=== PATIENT | male | born 2000 | race Caucasian/White ===

== ENCOUNTER 2018-10-11 14:26 | Emergency (ER) | payer SELFPAY ==
[2018-10-11] MEDS ORDERED: Ondansetron 4 MG/2 ML SDV IVPUSH ONE (14:54)
[2018-10-11] MEDS ORDERED: Famotidine 20 MG/2 ML SDV IVPUSH ONE (14:54)
[2018-10-11] MEDS ORDERED: Sodium Chloride 0.9% 10 ML Syringe FLUSH PRN (14:54)
[2018-10-11] MEDS ORDERED: Sodium Chloride 0.9% 1,000 ML IV SCH (15:00)
--- NOTE | 2018-10-11 15:03 | EDM.PDOC ---
ED HPI GENERAL MEDICAL PROBLEM - General Chief Complaint: Gastrointestinal Problem Stated Complaint: VOMITING Time Seen by Provider: 10/11/18 14:40 Source of Information: Reports: Patient, RN Notes Reviewed - History of Present Illness INITIAL COMMENTS - FREE TEXT/NARRATIVE: 18-year-old male comes in with nausea vomiting and also hematemesis. He states he felt fine yesterday was out drinking with friends last evening. Did drink a lot of alcohol, type of [employer] [place] rum and also beer. This morning awakening about 5 hours ago he immediately started feeling very nauseated and then repetitive vomiting. He did try drink some water while ago which made him vomit some more and then there was some blood. He does have some upper midabdominal pain. No diarrhea, no fever or chills. No history of ulcer or other known GI problems. 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 [No Known Home Meds] 10/11/18 [History] Past Medical History - Past Surgical History HEENT Surgical History: Reports: Myringotomy w Tube(s) Social & Family History - Tobacco Use Smoking Status *Q: Never Smoker - Caffeine Use Caffeine Use: Reports: Tea - Recreational Drug Use Recreational Drug Use: Yes Recreational Drug Type: Reports: Marijuana/Hashish Other Recreational Drug Type: last used yesterday ED ROS GENERAL - Review of Systems Review Of Systems: See Below Constitutional: Denies: Fever, Chills, Diaphoresis HEENT: Denies: Throat Pain Respiratory: Denies: Shortness of Breath Cardiovascular: Denies: Chest Pain GI/Abdominal: Reports: Abdominal Pain, Nausea, Vomiting. Denies: Diarrhea Musculoskeletal: Reports: No Symptoms Skin: Reports: No Symptoms Neurological: Reports: No Symptoms ED EXAM, GI/ABD - Physical Exam Exam: See Below General Appearance: Alert, No Apparent Distress Eyes: Bilateral: Normal Appearance Throat/Mouth: Other Head: No: Atraumatic, Facial Swelling Neck: Supple Respiratory/Chest: No Respiratory Distress, Lungs Clear, Normal Breath Sounds Cardiovascular: Regular Rate, Rhythm GI/Abdominal Exam: Soft, Tender (Mild tenderness upper mid abdomen). No: Guarding, Rebound Extremities: Normal Inspection, Normal Range of Motion Neurological: Alert, Oriented, No Motor/Sensory Deficits Skin Exam: Warm, Dry, Normal Color Course - Vital Signs Last Recorded V/S: Last Vital Signs Temp 97.8 F 10/11/18 14:41 Pulse 76 10/11/18 14:41 Resp 20 10/11/18 14:41 BP 143/81 H 10/11/18 14:41 Pulse Ox 100 10/11/18 14:41 - Orders/Labs/Meds Orders: Active Orders 24 hr Category Date Time Status Peripheral IV Care [RC] . DIRECTED Care 10/11/18 14:55 Active Sodium Chloride 0.9% [Normal Saline] 1,000 ml Med 10/11/18 15:00 Active IV ONETIME Sodium Chloride 0.9% [Saline Flush] Med 10/11/18 14:54 Active 10 ml FLUSH ASDIRECTED PRN Peripheral IV Insertion Adult [OM.PC] Stat Oth 10/11/18 14:54 Ordered Medication Orders Sodium Chloride (Normal Saline) 1,000 mls @ 999 mls/hr IV ONETIME JAMAAL Last Admin: 10/11/18 15:17 Dose: 999 mls/hr Sodium Chloride (Saline Flush) 10 ml FLUSH ASDIRECTED PRN PRN Reason: Keep Vein Open Last Admin: 10/11/18 15:00 Dose: 10 ml Meds: Medications Generic Name Dose Route Start Last Admin Trade Name Freq PRN Reason Stop Dose Admin Sodium Chloride 1,000 mls @ 999 mls/hr 10/11/18 15:00 10/11/18 15:17 Normal Saline IV 999 mls/hr ONETIME JAMAAL Administration Sodium Chloride 10 ml 10/11/18 14:54 10/11/18 15:00 Saline Flush FLUSH 10 ml ASDIRECTED PRN Administration Keep Vein Open Discontinued Medications Generic Name Dose Route Start Last Admin Trade Name Freq PRN Reason Stop Dose Admin Famotidine 20 mg 10/11/18 14:54 10/11/18 15:15 Pepcid IVPUSH 10/11/18 14:55 20 mg ONETIME ONE Administration Ondansetron HCl 4 mg 10/11/18 14:54 10/11/18 15:12 Zofran IVPUSH 10/11/18 14:55 4 mg ONETIME ONE Administration Departure - Departure Time of Disposition: 15:31 Disposition: Home, Self-Care 01 Condition: Fair Clinical Impression: Vomiting Qualifiers: Vomiting type: unspecified Vomiting Intractability: non-intractable Nausea presence: with nausea Qualified Code(s): R11.2 - Nausea with vomiting, unspecified Hematemesis Qualifiers: Nausea presence: with nausea Qualified Code(s): K92.0 - Hematemesis - Discharge Information Referrals: PCP,None [Primary Care Provider] - Forms: ED Department Discharge Additional Instructions: Clear liquids only until this evening, then very careful bland diet as tolerated , avoid further alcohol today. Follow-up clinic if symptoms not resolving as expected. - My Orders Last 24 Hours: My Active Orders 10/11/18 14:54 Sodium Chloride 0.9% [Saline Flush] 10 ml FLUSH ASDIRECTED PRN Peripheral IV Insertion Adult [OM.PC] Stat 10/11/18 14:55 Peripheral IV Care [RC] . DIRECTED 10/11/18 15:00 Sodium Chloride 0.9% [Normal Saline] 1,000 ml IV ONETIME - Assessment/Plan Last 24 Hours: My Active Orders 10/11/18 14:54 Sodium Chloride 0.9% [Saline Flush] 10 ml FLUSH ASDIRECTED PRN Peripheral IV Insertion Adult [OM.PC] Stat 10/11/18 14:55 Peripheral IV Care [RC] . DIRECTED 10/11/18 15:00 Sodium Chloride 0.9% [Normal Saline] 1,000 ml IV ONETIME
== END 2018-10-11 16:25 | disposition home or self-care (01) ==
LOC: JD.ED 14:26
DX: K92.0 Hematemesis (principal)
CPT/HCPCS: 96361; 96374; 96375; 99283; J2405; J3490; J7040; 99284

== ENCOUNTER 2018-11-05 23:29 | Emergency (ER) | payer SELFPAY ==
[2018-11-05] MEDS ORDERED: Morphine 4 MG/ML Syringe IM ONE (23:45)
--- NOTE | 2018-11-05 23:49 | EDM.PDOC ---
ED HPI GENERAL MEDICAL PROBLEM - General Chief Complaint: Upper Extremity Injury/Pain Stated Complaint: WRIST INJURY Time Seen by Provider: 11/05/18 23:38 - History of Present Illness INITIAL COMMENTS - FREE TEXT/NARRATIVE: 18-year-old male presents emergency room with a right wrist and forearm injury Patient was riding his longboard and fell forward he is not sure how is he landed. He also bumped his head. The patient did not have any loss of consciousness no nausea no vomiting no unusual neurological symptoms. This occurred nearly 6 hours ago. Denies any head pain or discomfort at this time. The pain is not getting better in his arm and hand so he came in for evaluation past medical history is unremarkable he denies any allergies Right Wrist Pain Score (Numeric/FACES): 9 - Related Data Allergies Allergy/AdvReac Type Severity Reaction Status Date / Time No Known Allergies Allergy Verified 10/11/18 14:37 Home Meds: Home Meds . [No Known Home Meds] 10/11/18 [History] Past Medical History - Past Surgical History HEENT Surgical History: Reports: Myringotomy w Tube(s) Social & Family History - Caffeine Use Caffeine Use: Reports: Tea Review of Systems - Review of Systems Review Of Systems: See Below Constitutional: Reports: No Symptoms. Denies: Chills, Fever Eyes: Reports: No Symptoms Ears: Reports: No Symptoms Nose: Reports: No Symptoms Mouth/Throat: Reports: No Symptoms Respiratory: Reports: No Symptoms Cardiovascular: Reports: No Symptoms GI/Abdominal: Reports: No Symptoms Genitourinary: Reports: No Symptoms Skin: Reports: No Symptoms Neurological: Reports: No Symptoms ED EXAM, GENERAL - Physical Exam Exam: See Below Exam Limited By: No Limitations General Appearance: Alert, Mild Distress (He is having some pain) Eye Exam: Bilateral Eye: Normal Inspection Head: Atraumatic, Normocephalic Neck: Normal Inspection, Supple, Non-Tender, Full Range of Motion Respiratory/Chest: No Respiratory Distress, Lungs Clear, Normal Breath Sounds Cardiovascular: Regular Rate, Rhythm, No Edema, No Murmur GI/Abdominal: Normal Bowel Sounds, Soft, Non-Tender Back Exam: Normal Inspection. No: CVA Tenderness (L), CVA Tenderness (R) Neurological: Alert, Oriented, Normal Cognition, Other (Examination of the right upper extremity normal neurovascular status and hand wrist is hard to evaluate as he has significant tenderness she has significant snuffbox tenderness. He does not want to move his digits. Wrist is tender as is the distal forearm he has some vague discomfort around the elbow he will not supinate or pronate his forearm.) Skin Exam: Warm, Dry, Intact Course - Vital Signs Last Recorded V/S: Last Vital Signs Temp 37.2 C 11/05/18 23:34 Pulse 60 11/05/18 23:34 Resp 18 11/05/18 23:34 BP 127/115 H 11/05/18 23:34 Pulse Ox 98 11/05/18 23:34 - Orders/Labs/Meds Orders: Active Orders 24 hr Category Date Time Status Elbow Min 3V Rt [CR] Stat Exams 11/05/18 23:43 Taken Hand Comp Min 3V Rt [CR] Stat Exams 11/05/18 23:43 Taken Wrist Comp Min 3V Rt [CR] Stat Exams 11/05/18 23:43 Taken Meds: Medications Discontinued Medications Generic Name Dose Route Start Last Admin Trade Name Jackson PRN Reason Stop Dose Admin Hydrocodone Bitart/Acetaminophen 1 tab 11/06/18 01:53 Stanton 325-5 Mg PO 11/06/18 01:54 ONETIME ONE Morphine Sulfate 4 mg 11/05/18 23:45 11/05/18 23:50 Morphine IM 11/05/18 23:46 Not Given ONETIME ONE Morphine Sulfate 4 mg 11/05/18 23:49 11/05/18 23:52 Morphine Sulfate IV 11/05/18 23:50 4 mg ONETIME ONE Administration Morphine Sulfate Confirm 11/05/18 23:47 11/05/18 23:54 Morphine Sulfate Administered 11/05/18 23:48 Not Given Dose 4 mg IV .STK-MED ONE Morphine Sulfate 4 mg 11/06/18 00:56 11/06/18 01:03 Morphine Sulfate IV 11/06/18 00:57 4 mg ONETIME ONE Administration - Re-Assessments/Exams Free Text/Narrative Re-Assessment/Exam: 11/06/18 01:46 Examination shows no acute fracture the wrist hand or forearm I believe the elbow is normal. I see some irregularity on the radial neck and will have this sent off to be looked at by radiology. The patient has borderline gapping at the scapholunate articulation. Patient is placed in a thumb spica splint and a short arm volar splint. 11/06/18 04:25 Virtual radiologic thought indeed he had a acute nondisplaced fracture of the radial neck. The patient's volar splint was removed and a long-arm splint was placed keeping the thumb spica portion intact. Departure - Departure Time of Disposition: 01:53 Disposition: Home, Self-Care 01 Clinical Impression: Fracture of radial neck, right, closed Clinical Impression: (Ruled Out): Scaphoid fracture, wrist, closed - Discharge Information Referrals: PCP,None [Primary Care Provider] - Catrachito Calderon MD [Physician] - Forms: ED Department Discharge Additional Instructions: Return to the emergency room with any questions problems worsening symptoms. Use the hydrocodone as needed for discomfort. Ibuprofen or naproxen may work just fine and use the hydrocodone for the more severe pain. Wear the splint at all times until a regular cast is put on. Do not drive or returning to work within 12 hours of taking the hydrocodone also do not drive with the splint or cast. Follow-up with orthopedics on Saturday or as soon as they can early next week this would be with Dr. Calderon. - My Orders Last 24 Hours: My Active Orders 11/05/18 23:43 Elbow Min 3V Rt [CR] Stat Hand Comp Min 3V Rt [CR] Stat Wrist Comp Min 3V Rt [CR] Stat - Assessment/Plan Last 24 Hours: My Active Orders 11/05/18 23:43 Elbow Min 3V Rt [CR] Stat Hand Comp Min 3V Rt [CR] Stat Wrist Comp Min 3V Rt [CR] Stat
[2018-11-06] MEDS ORDERED: Acetaminophen/HYDROcodone 325-5 MG Tab PO ONE (01:53)
--- NOTE | 2018-11-06 06:40 | CR ---
Right wrist: Three views of the right wrist are obtained. Comparison: No previous study. Joint spaces are preserved. No fracture, dislocation or other bony abnormality is seen. Impression: 1. No abnormality is seen on right wrist exam. Diagnostic code #1
--- NOTE | 2018-11-06 06:40 | CR ---
Right hand: Four views of the right hand were obtained. Comparison: No prior hand exam. Joint spaces are preserved. No fracture, dislocation or other bony abnormality is seen. Impression: 1. No abnormality is identified on right hand exam. Diagnostic code #1
--- NOTE | 2018-11-06 06:40 | CR ---
Right elbow: Four views of the right elbow were obtained. Comparison: No previous elbow. Nondisplaced radial neck fracture is felt to be present. No additional fracture or other bony abnormality is seen. Impression: 1. Nondisplaced radial neck fracture. Diagnostic code #3 I agree with preliminary report from [facility], finalized on 11/06/18, 4:51 AM Central Time
== END 2018-11-06 04:35 | disposition home or self-care (01) ==
LOC: JD.ED 23:29
DX: S52.131A Displaced fracture of neck of right radius, initial encounter for closed fracture (principal); V00.131A Fall from skateboard, initial encounter
CPT/HCPCS: 29105; 73080; 73110; 73130; 96372; 99283; J2270

== ENCOUNTER 2022-07-18 01:16 | Emergency (ER) | payer SELFPAY ==
[2022-07-18] MEDS ORDERED: Diphtheria,Pertussis(Acell),Tetanus Vaccine 0.5 ML Syringe IM ONE (07:46)
[2022-07-18] MEDS ORDERED: Lidocaine 1% 10 ML MDV INJECT ONE (07:46)
== END 2022-07-18 08:05 | disposition left against medical advice (07) ==
LOC: JD.ED 01:16
DX: S01.81XA Laceration without foreign body of other part of head, initial encounter (principal); F10.129 Alcohol abuse with intoxication, unspecified; F17.210 Nicotine dependence, cigarettes, uncomplicated; Z23 Encounter for immunization; W18.09XA Striking against other object with subsequent fall, initial encounter
CPT/HCPCS: 90471; 99282